=== PATIENT | male | born 1965 | race Hispanic/Latino ===

== ENCOUNTER 2018-05-10 10:58 | Emergency (ER) | payer OTHER, SELFPAY ==
[2018-05-10] MEDS ORDERED: Ketorolac Tromethamine 30 MG/ML VIAL ONE (11:38)
[2018-05-10] MEDS ORDERED: Ondansetron PF 4 MG/2 ML Vial ONE (11:43)
[2018-05-10] MEDS ORDERED: Midazolam HCl 2 mg/2 ml Vial ONE (11:43)
[2018-05-10] MEDS ORDERED: Ketamine 50 MG/ML (10ML VIAL) ONE (11:47)
[2018-05-10] MEDS ORDERED: Fentanyl 100 MCG/2 ML VIAL ONE ×2 (11:59→13:38)
[2018-05-10] MEDS ORDERED: Dextrose 5 %-0.45 % NaCl 1,000 ML IV SCH (15:45)
--- NOTE | 2018-05-10 20:00 | RAD ---
LEFT ANKLE THREE VIEWS: 05/10/18 Post reduction views are provided with a splint in place. There has been a little better alignment of the tibia and talus, though the tibia is still displaced medially with respect to the talus. The med ial malleolar fracture is not quite so rotated and the fibular fracture is a little better opposed. IMPRESSION: Improved reduction of fractures. There is still significant disruption of the ankle mortise with medi al displacement of the tibia on the talus. POS: HOME
--- NOTE | 2018-05-10 20:56 | RAD ---
LEFT ANKLE THREE VIEWS: 05/10/18 A fracture dislocation of the distal tibia is present. The fracture is through the medial malleolus w hich is displaced. The ankle mortise is disrupted and the tibia is displaced medially on the dome of the talus. Additionally, there is a slightly comminuted fracture of the distal fibular shaft a few ce ntimeters above the malleolus. There also appears to be a posterior malleolar fracture of the distal tibia posteriorly. The calcaneus and talus appeared intact. IMPRESSION: Fractures of the distal fibular shaft, medial malleolus and posterior distal tibia with medial displa cement of the tibia on the talus. POS: HOME
== END 2018-05-10 13:58 | disposition short-term general hospital (02) ==
LOC: BURERS 10:58
DX: S82.852A Displaced trimalleolar fracture of left lower leg, initial encounter for closed fracture (principal); W22.8XXA Striking against or struck by other objects, initial encounter
CPT/HCPCS: 27818; 94760; 96374; 96375; 99152; 99153; J1885; J2250; J2405; J3010